=== PATIENT | female | born 1985 | race Two or more races ===

== ENCOUNTER → 2020-05-18 15:44 | Outpatient (BNVA) | payer OTHER, SELFPAY | PROVIDERS: PCP Hospitalist; Referring Provider Hospitalist; Visit Provider Internal Medicine Cardiovascular Disease | DX: R00.2 Palpitations (principal); R55 Syncope and collapse; F90.9 Attention-deficit hyperactivity disorder, unspecified type; Z79.899 Other long term (current) drug therapy | CPT/HCPCS: 93005; 99202 ==

== ENCOUNTER → 2020-06-09 09:50 | Outpatient (BNVA) | payer OTHER, SELFPAY | PROVIDERS: PCP Family Medicine; Referring Provider Family Medicine; Visit Provider Nurse Practitioner | DX: Z76.89 Persons encountering health services in other specified circumstances (principal) ==

== ENCOUNTER 2020-06-10 16:37 | Outpatient (REF) | payer OTHER, SELFPAY ==
[2020-06-10 18:02] LABS: MANUAL DIFF FLAG NO
[2020-06-10 18:09] LABS: Basophils Percent Auto 0.2 % (0-2); Eosinophils Absolute Auto 0.1 X10*3/uL (0.0-0.4); Eosinophils Percent Auto 0.7 % (0-4); Hematocrit 44.9 % (37-47); Hemoglobin 15.2 g/dl (12.0-16.0); Imm Gran Abs Auto 0.03 X10*3/uL (0.00-0.03); Imm Gran Pct Auto 0.4 % (0.0-0.4); Lymphocytes Absolute Auto 1.6 X10*3/uL (1.2-4.9); Lymphocytes Percent Auto 18.8 % (20-40); Mean Corpuscular HGB Conc 33.9 g/dl (31.0-35.0); Mean Corpuscular Hemoglobin 30.3 pg (27.0-33.0); Mean Corpuscular Volume 89.4 fL (80-98); Monocytes Absolute Auto 0.6 X10*3/uL (0.1-1.2); Monocytes Percent Auto 6.6 % (2-11); Neutrophils Absolute Auto 6.2 X10*3/uL (2.0-8.3); Neutrophils Percent Auto 73.3 % (45-73); Platelet Count 290 X10*3/uL (160-400); Red Blood Count 5.02 X10*6/uL (4.20-5.50); Red Cell Distribution Width 12.5 % (11.0-16.0); White Blood Count 8.5 X10*3/uL (4.8-10.8)
[2020-06-10 18:39] LABS: Alanine Aminotransferase 13 U/L (0-31); Albumin Level 4.9 g/dL (3.5-5.0); Alkaline Phosphatase 68 U/L (39-117); Anion Gap 13 (12-20); Aspartate Amino Transferase 19 U/L (5-31); Bilirubin Total 0.3 mg/dL (0.0-1.0); Blood Urea Nitrogen 9 mg/dL (9-16); Calcium 9.4 mg/dL (8.4-10.2); Carbon Dioxide 26 mmol/L (22-29); Chloride 103 mmol/L (96-108); Estimated Glomerular Filt Rate > 60; Glucose Random 82 mg/dL (60-115); Potassium 4.1 mmol/l (3.3-5.1); Sodium 138 mmol/L (135-145); Total Protein 7.7 g/dL (6.5-8.0)
== END 2020-06-10 16:38 | disposition home or self-care (01) ==
LOC: HO.LAB 16:37
PROVIDERS: PCP Family Medicine; Visit Provider Nurse Practitioner
DX: R11.10 Vomiting, unspecified (principal)
CPT/HCPCS: 36415; 80053; 85025

== ENCOUNTER → 2020-06-16 13:07 | Outpatient (REF) | payer OTHER, SELFPAY ==
--- NOTE | 2020-06-16 13:13 | CA_ITS ---
Transthoracic Echocardiogram Patient (Last, First, Middle): Krystle Palacios, Gender: Female Date of : 1985 Age: 34 Procedure Date: 06/16/2020 Procedure Type: Transthoracic Echocardiogram Location: OP Height: 149.86 cm Weight: 45.81 kg BSA: 1.38 m2 Heart Rate: bpm BP: 110 / 70 mmHg Tester Vibrator Equipment: ITZEL Cook MD: Arvind Amanda MD Team Leader Surgery: Wild Ivey MD Symptoms: R00.2 - Palpitations Study Quality: Good ECG Rhythm: Sinus Conclusions: - Normal study Findings Left Ventricle Normal left ventricular size, thickness, and systolic function. The visually estimated ejection fraction is between 60-65%. Diastolic function is normal for age. Right Ventricle Normal right ventricular cavity size and systolic function. Atria Both atria are normal in size. There is no evidence of interatrial shunt. Aortic Valve Normal aortic valve structure and function. There is no aortic valve stenosis. There is no aortic valve regurgitation. Mitral Valve Normal mitral valve structure and function. There is trace mitral valve regurgitation. There is no mitral valve stenosis. Pulmonic Valve The pulmonic valve is likely normal. There is trace pulmonic valve regurgitation. Tricuspid Valve Normal tricuspid valve structure. Tricuspid regurgitation envelope is inadequate for calculation of right ventricular systolic pressure. Great Vessels All visible segments of the aorta are normal in size. The pulmonary artery was not well visualized. Venous The inferior vena cava is normal in size and collapses greater than 50% with inspiration. Pericardium/Pleural There is no evidence of pericardial effusion. Prior Study Comparison No prior study available for comparison. Measurements 2D Linear Measurements IVSd: 0.73 0.6-0.9/0.6-1.0 cm LVIDd: 3.80 3.9-5.3/4.2-5.9 cm LVIDd Index: 2.75 2.4-3.2/2.2-3.1 cm/m2 LVIDs: 2.80 2.0-3.6 cm LVPWd: 0.74 0.7-1.1 cm Ao Root: 2.50 2.1-3.5 cm LA Diam: 2.80 2.7-3.8/3.0-4.0 cm LAIDs Index: 2.03 1.5-2.3 cm/m2 LV Mass: 94.89 67-162/88-224 g LV Mass Index: 68.76 43-95/49-115 g/m2 LVOT Diam: 1.90 3.0+(-)1.3 cm 2D Systolic Function EF 4C: 59.40 >55% EF 2C: 67.40 >55% EF BiP: 62.90 >55% Mitral Valve MV Pk E: 0.66 MV PK A: 0.66 MV Decel Time: 201.00 E/A: 1.00 E'Lateral: 12.70 E'Medial: 9.03 E/E' Med: 7.30 E/E' Lat: 5.20 PHT: 59.00 MVA PHT: 3.73 Decel [place]: 3.26 Aortic Valve AoV Pk Kalpesh: 1.32 AoV Mn Kalpesh: 0.98 AoV VTI: 0.23 AoV Pk Grad: 7.00 Aov Mn Grad: 4.00 JOCELYNE Cont.VTI: 1.94 LVOT LVOT Pk Kalpesh: 0.94 LVOT Mn Kalpesh: 0.57 LVOT VTI: 0.16 LVOT Pk Grad: 4.00 LVOT Mn Grad: 2.00 LVOT Diam: 1.90 LVOT Area: 2.84 Diastolic Function MV Pk E: 0.66 MV Pk A: 0.66 E/A: 1.00 E'Medial: 9.03 E/E' Med: 7.30 E' Laterial: 12.70 E/E' Lat: 5.20 Great Vessels Aorta Ao Root-2D: 2.50 2.0-3.7 cm Ao Asc: 3.00 2.1-3.4 cm Ao Arch: 3.00 Updated in Other Vendor System with Status of Final Wild Ivey MD electronically signed on 06/16/2020 3:29:22 PM with status of Final
--- NOTE | 2020-06-16 13:13 | ECG_ITS ---
Hook-up date: 2020-06-16 14:10:00 Duration: 47:59:00 Test Indications: PALPITATIONS Medications: [id number] QRS complexes 3 Ventricular ectopics which represent <1 % of total QRS comp. * Supraventricular ectopics which represent % of total QRS comp. * Paced QRS complexs which represent % of total QRS comp. VENTRICULAR ECTOPY 3 Isolated 0 Bigeminal Cycles 0 Couplets 0 Runs 0 Beats in Runs * Beats LONGEST at * BPM at :: -- * Beats FASTEST at * BPM at :: -- SUPRAVENTRICULAR ECTOPY * Isolated * Couplets * Runs * Beats in Runs * Beats LONGEST at * BPM at :: -- * Beats FASTEST at * BPM at :: -- HEART RATES 53 MIN at 04:47:10 2020-06-17 96 AVG 131 MAX at 10:25:11 2020-06-17 LONGEST RR 1.2560 secs at 04:47:06 2020-06-17 S-T LEVELS Channel 1 - 128 mm at 14:10:00 2020-06-16 - 128 mm at 14:10:00 2020-06-16 Channel 2 - 128 mm at 14:10:00 2020-06-16 - 128 mm at 14:10:00 2020-06-16 Channel 3 - 128 mm at 03:32:91 -- - 128 mm at 03:32:91 Underlying rhythm is sinus; Average ventricular rate 96/min; range 53-131/min; About 52% of the time, ventricular rate >100/min; Artfact in several strips; Symptoms of chest pain, shortness of breath associated with normal sinus and some sinus tachycardia. Tracing available for 22 Hrs. Referred By: Arvind Amanda Overread By: CARA RUIZ
== END ==
LOC: HO.CARD 13:07
PROVIDERS: Visit Provider Internal Medicine Cardiovascular Disease
DX: R00.2 Palpitations (principal)
CPT/HCPCS: 93225; 93226; 93306

== ENCOUNTER 2020-06-30 10:26 | Day surgery (SDC) | payer OTHER, SELFPAY ==
[2020-06-21 12:04] VITALS: BMI 19.1
--- NOTE | 2020-06-21 13:14 | HO.ANESPROP2 ---
Documented by User: Emmie Fung 06/28/20 11:10 HPI - Anesthesia Eval Consult details Narrative: 34yo F for Upper Endoscopy Case discussed with Dr Amanda, pt optimized, low risk. PMFSH Past Medical History Medical History ADHD Depo-Provera contraceptive status Diarrhea Herniation of intervertebral disc between L4 and L5 Intestinal metaplasia of gastric mucosa Low back pain Palpitations Family History Family History Family/Other Family history not known due to adoption Surgical History Surgical History H/O breast surgery History of esophagogastroduodenoscopy (EGD) History of hand surgery Hx of colonoscopy Social History Social History Alcohol intake: never Smoking Status: Never smoker Use of substances other than those prescribed or required for medical reasons: No Advance Directives: No Advance Directives Information Provided: No Advance Directives on File: No Meds Allergies Allergy/AdvReac Type Severity Reaction Status Date / Time No Known Allergies Allergy Verified 06/21/20 12:12 Home Medications Medication Instructions Recorded Confirmed Type dextroamphetamine-amphetamine 10 10 mg PO TID 05/03/20 06/21/20 History mg tablet dextroamphetamine-amphetamine 20 20 mg PO DAILY@0730 05/03/20 06/21/20 History mg tablet methylprednisolone acetate IM .3 months 05/03/20 05/18/20 History quetiapine 50 mg tablet 50 mg PO BEDTIME 05/03/20 06/21/20 History clonazepam 0.5 mg tablet 0.5 mg PO BID 05/18/20 06/21/20 History tramadol 50 mg PO TID PRN 06/21/20 06/21/20 History Exam Exam Date and Time: June 21, 2020 1314 Height,Weight and Vital Signs: Height 4 ft 11 in Weight 43.091 kg Pertinent Lab Results Pertinent Lab Results: CBC and CMP WNL Narrative Narrative: EKG 05/18/20: NSR@99 Echo 06/16/20: Nml study Assessment and Plan Assessment Anesthesia Assessment: Chart Reviewed Documented by User: Casa Barreto MD 06/30/20 10:43 PMFSH Past Medical History Medical History ADHD Depo-Provera contraceptive status Diarrhea Herniation of intervertebral disc between L4 and L5 Intestinal metaplasia of gastric mucosa Low back pain Palpitations Family History Family History Family/Other Family history not known due to adoption Surgical History Surgical History H/O breast surgery History of esophagogastroduodenoscopy (EGD) History of hand surgery Hx of colonoscopy Social History Social History Alcohol intake: never Smoking Status: Never smoker Use of substances other than those prescribed or required for medical reasons: No Advance Directives: No Advance Directives Information Provided: No Advance Directives on File: No Meds Allergies Allergy/AdvReac Type Severity Reaction Status Date / Time No Known Allergies Allergy Verified 06/21/20 12:12 Home Medications Medication Instructions Recorded Confirmed Type dextroamphetamine-amphetamine 10 10 mg PO TID 05/03/20 06/21/20 History mg tablet dextroamphetamine-amphetamine 20 20 mg PO DAILY@0730 05/03/20 06/21/20 History mg tablet methylprednisolone acetate IM .3 months 05/03/20 05/18/20 History quetiapine 50 mg tablet 50 mg PO BEDTIME 05/03/20 06/21/20 History clonazepam 0.5 mg tablet 0.5 mg PO BID 05/18/20 06/21/20 History tramadol 50 mg PO TID PRN 06/21/20 06/21/20 History Exam Airway Mallampati Class: I TM Dist: >3cm Neck ROM: Full Loose/Missing/Broken Teeth: No Heart: RRR Lungs: NL Other: AO Assessment and Plan Assessment Anesthesia Assessment: Anesthesia Plan Discussed and Chart Reviewed Final Anesthetic Review NPO: Yes ASA Class: II Final Preanesthetic Review: No Changes in Pt Med Stat, Meds/Allgs Chart Reviewed, Consent Obtained/Reviewed and Anes Risks/Benef Reviewed Patient Risk: Low Procedure Risk: Low Anesthetic Plan Anesthetic Plan: MAC: Disposition: Standard PACU
--- NOTE | 2020-06-30 10:29 | PC.NURSE ---
patient stated she is on the depo shot
[2020-06-30 10:31] VITALS: BP 114/82; PULSE 99; RESP 17; TEMP 36.7; O2SAT 99
--- NOTE | 2020-06-30 10:37 | MHC.SHP ---
Pre-Procedural Eval Section B Chief Complaint: Vomiting Details of Present Illness: nausea, vomiting, diarrhea Relevant Social History: None Present Medications: see Short Stay Collaborative assessment Medical History: Significant History (ADHD Diarrhea Herniation of intervertebral disc between L4 and L5 Intestinal metaplasia of gastric mucosa Low back pain Palpitations) History of Previous Operations: Relevant previous surgery/procedure and date(s) (H/O breast surgery History of esophagogastroduodenoscopy (EGD) History of hand surgery Hx of colonoscopy) Allergies: Allergies Allergy/AdvReac Type Severity Reaction Status Date / Time No Known Allergies Allergy Verified 06/21/20 12:12 Review of Systems Sugical H&P ROS: Negative: Constitution, Cardiovascular, Respiratory, Neurological, Psychiatric, Hem-Onc, Allergic/Immunologic, Gastrointestinal, Genitourinary, Musculoskeletal, Integumentary, Endocrine and Eyes/Ears/Nose/Throat Exam Surgical H&P Exam: Normal: HEENT, Normal: Heart, Normal: Lungs, Normal: Extremities, Normal: Skin and Normal: Neurological and Significant Findings: Abdomen (tender RLQ) Plan Diagnosis/Plan: Unchanged I have reviewed the history and physical and performed a pertinent physical examination on my patient. No changes have occurred unless specified.
--- NOTE | 2020-06-30 10:38 | PM.OP ---
Brief Operative Note Date of Service: 06/30/20 Pre-op diagnosis: nausea, vomiting, diarrhea Post-op diagnosis: same Procedure: Procedure Description: EGD FLEXIBLE TRANSORAL UPPER GASTROINTESTINAL ENDOSCOPY UPPER ENDOSCOPY Consent: Indications for the procedure and potential complications of bleeding, perforation, reaction to medications and missed diagnosis were discussed with the patient and informed consent was obtained. Instrument: Olympus GIF H 190 J mid size upper endoscope Monitoring: Vital signs and clinical assessment, continuous EKG monitoring, Pulse oximetry, Carbon Dioxide monitoring and blood pressure monitoring were done throughout the procedure. Procedure: The patient was placed in the left lateral decubitis position and pre-procedure medications were administered and a bite block was placed. The endoscope was inserted into the mouth and advanced under direct vision to the third part of duodenum. A careful inspection was made as the upper endoscope was withdrawn including a retroflexed examination of the proximal stomach; Findings and interventions are described below. Findings: Larynx:normal Esophagus: GE junction at 37 cm, diaphragm hiatus at 37 cm, no varices or esophagitis. random bx taken Stomach:Mild pallor noted with few areas of scarring. Biopsies were obtained from angularis, antrum, lesser curve and greater curve in seperate jars. Grade 2 flap valve on retroflexed examination of the cardia. There was also paucity of gastric movement. Duodenum: Normal bulb and descending duodenum, bx taken Intervention: Biopsies as noted above Impression/Findings: possible gastropathy possible gastroparesis PLAN: await bx results might need further w/u for sx depending on results incl CTe, GES Surgeon: Elmira Rowland MD Anesthesia: MAC Estimated blood loss (mL): 0 Condition: stable Disposition: PACU
[2020-06-30] MEDS: Lactated Ringers 1,000 ML 100 ML IVCONT (10:39)
[2020-06-30 11:22] VITALS: BP 101/68; PULSE 74; RESP 16; TEMP 36.3; O2SAT 100
[2020-06-30 11:37] VITALS: BP 123/88; PULSE 75; RESP 18; O2SAT 100
[2020-06-30 11:45] VITALS: BP 134/96; PULSE 69; RESP 13; TEMP 36.1; O2SAT 100
--- NOTE | 2020-06-30 11:48 | HO.POSTANES ---
Post Anesthesia Evaluation Post Anesthesia Evaluation Vital Signs: Vital Signs Temp Pulse Resp BP Pulse Ox 06/30/20 11:37 75 18 123/88 100 06/30/20 11:22 97.4 F 74 16 101/68 100 06/30/20 10:31 98.1 F 99 17 114/82 99 Anesthesia: Monitored Mental Status: Awake Pain Control: Satisfactory Nausea/Vomiting: None Hydration: Adequate Anesthesia-Related Issues: No Anes. Related Issues
== END 2020-06-30 13:08 | disposition home or self-care (01) ==
PROVIDERS: PCP Family Medicine; Visit Provider Internal Medicine Gastroenterology
PROC: 0DJ08ZZ Inspection of Upper Intestinal Tract, Via Natural or Artificial Opening Endoscopic (ICD-10-PCS; CPT 43235; principal; 2020-06-30 11:20)
DX: R11.2 Nausea with vomiting, unspecified (principal); R19.7 Diarrhea, unspecified; R19.4 Change in bowel habit; K44.9 Diaphragmatic hernia without obstruction or gangrene; R23.1 Pallor; F90.9 Attention-deficit hyperactivity disorder, unspecified type; Z79.899 Other long term (current) drug therapy
CPT/HCPCS: 43239; 88305; 88342

== ENCOUNTER 2020-07-13 12:52 | Day surgery (SDC) | payer OTHER, SELFPAY ==
[2020-07-07 16:10] VITALS: BMI 19.1
--- NOTE | 2020-07-12 09:00 | HO.ANESPROP2 ---
Documented by User: Emmie Fung 07/12/20 09:02 HPI - Anesthesia Eval Consult details Narrative: 34yo F for Colonoscopy Upper Endoscopy with MAC 06/30/20 [facility] Past Medical History Medical History ADHD Depo-Provera contraceptive status Diarrhea Herniation of intervertebral disc between L4 and L5 Intestinal metaplasia of gastric mucosa Low back pain Palpitations Family History Family History Family/Other Family history not known due to adoption Surgical History Surgical History H/O breast surgery History of esophagogastroduodenoscopy (EGD) History of hand surgery Hx of colonoscopy Social History Social History Alcohol intake: never Smoking Status: Never smoker Second Hand Smoke Exposure: No Use of substances other than those prescribed or required for medical reasons: No Advance Directives: No Advance Directives Information Provided: No Advance Directives on File: No Meds Allergies Allergy/AdvReac Type Severity Reaction Status Date / Time No Known Allergies Allergy Verified 06/21/20 12:12 Home Medications Medication Instructions Recorded Confirmed Type dextroamphetamine-amphetamine 10 10 mg PO TID 05/03/20 07/07/20 History mg tablet dextroamphetamine-amphetamine 20 20 mg PO DAILY@0730 05/03/20 07/07/20 History mg tablet methylprednisolone acetate IM .3 months 05/03/20 05/18/20 History quetiapine 50 mg tablet 50 mg PO BEDTIME 05/03/20 07/07/20 History clonazepam 0.5 mg tablet 0.5 mg PO BID 05/18/20 07/07/20 History tramadol 50 mg PO TID PRN 06/21/20 07/07/20 History Exam Exam Date and Time: July 12, 2020 0900 Height,Weight and Vital Signs: Height 4 ft 11 in Weight 43.09 kg Pertinent Lab Results Pertinent Lab Results: Laboratory Tests 06/10/20 06/10/20 16:45 16:45 WBC 8.5 Hgb 15.2 Hct 44.9 Plt Count 290 Sodium 138 Potassium 4.1 Chloride 103 Carbon Dioxide 26 BUN 9 Creatinine 0.73 Narrative Narrative: EKG 11/18/20: NSR@99 Echo 06/16/20: Nml study Assessment and Plan Assessment Anesthesia Assessment: Chart Reviewed Documented by User: Casa Barreto MD 07/13/20 13:43 [facility] Past Medical History Medical History ADHD Depo-Provera contraceptive status Diarrhea Herniation of intervertebral disc between L4 and L5 Intestinal metaplasia of gastric mucosa Low back pain Palpitations Family History Family History Family/Other Family history not known due to adoption Surgical History Surgical History H/O breast surgery History of esophagogastroduodenoscopy (EGD) History of hand surgery Hx of colonoscopy Social History Social History Alcohol intake: never Smoking Status: Never smoker Second Hand Smoke Exposure: No Use of substances other than those prescribed or required for medical reasons: No Advance Directives: No Advance Directives Information Provided: No Advance Directives on File: No Meds Allergies Allergy/AdvReac Type Severity Reaction Status Date / Time No Known Allergies Allergy Verified 06/21/20 12:12 Home Medications Medication Instructions Recorded Confirmed Type dextroamphetamine-amphetamine 10 10 mg PO TID 05/03/20 07/07/20 History mg tablet dextroamphetamine-amphetamine 20 20 mg PO DAILY@0730 05/03/20 07/07/20 History mg tablet methylprednisolone acetate IM .3 months 05/03/20 05/18/20 History quetiapine 50 mg tablet 50 mg PO BEDTIME 05/03/20 07/07/20 History clonazepam 0.5 mg tablet 0.5 mg PO BID 05/18/20 07/07/20 History tramadol 50 mg PO TID PRN 06/21/20 07/07/20 History Exam Airway Mallampati Class: I TM Dist: >3cm Neck ROM: Full Loose/Missing/Broken Teeth: No Heart: RRR Lungs: NL Other: AO Assessment and Plan Assessment Anesthesia Assessment: Anesthesia Plan Discussed and Chart Reviewed Final Anesthetic Review NPO: Yes ASA Class: I Final Preanesthetic Review: No Changes in Pt Med Stat, Meds/Allgs Chart Reviewed, Consent Obtained/Reviewed and Anes Risks/Benef Reviewed Patient Risk: Low Procedure Risk: Low Anesthetic Plan Anesthetic Plan: MAC: Disposition: Standard PACU
[2020-07-13 13:10] VITALS: BP 118/81; PULSE 65; RESP 16; TEMP 36.9; O2SAT 98
[2020-07-13 13:16] LABS: UPreg QC Valid YES
[2020-07-13 13:17] LABS: Urine Pregnancy NEGATIVE (NEGATIVE)
[2020-07-13] MEDS: Lactated Ringers 1,000 ML 100 ML IVCONT (13:23)
--- NOTE | 2020-07-13 14:03 | MHC.SHP ---
Pre-Procedural Eval Section B Chief Complaint: Diarrhea Relevant Family History (Specify if Yes): No Relevant Social History: None Present Medications: see Short Stay Collaborative assessment Medical History: Significant History (ADHD Depo-Provera contraceptive status Diarrhea Herniation of intervertebral disc between L4 and L5 Intestinal metaplasia of gastric mucosa Low back pain Palpitations) History of Previous Operations: Relevant previous surgery/procedure and date(s) (H/O breast surgery History of esophagogastroduodenoscopy (EGD) History of hand surgery Hx of colonoscopy) Allergies: Allergies Allergy/AdvReac Type Severity Reaction Status Date / Time No Known Allergies Allergy Verified 06/21/20 12:12 Review of Systems Sugical H&P ROS: Negative: Constitution, Cardiovascular, Respiratory, Neurological, Psychiatric, Hem-Onc, Allergic/Immunologic, Gastrointestinal, Genitourinary, Musculoskeletal, Integumentary, Endocrine and Eyes/Ears/Nose/Throat Exam Surgical H&P Exam: Normal: HEENT, Normal: Heart, Normal: Lungs, Normal: Extremities, Normal: Abdomen, Normal: Skin and Normal: Neurological Plan Diagnosis/Plan: Unchanged I have reviewed the history and physical and performed a pertinent physical examination on my patient. No changes have occurred unless specified.
--- NOTE | 2020-07-13 14:29 | P.OP_ITS ---
Operative Note Operative Note Date of Service: 07/13/20 Narrative: Operative Information Procedure Description: Colonoscopy COLONOSCOPY Instrument: Olympus variable stiffness pediatric scope 190L Colonoscopy Monitoring: Vital signs and clinical assessment, continuous EKG monitoring, Pulse oximetry, Carbon Dioxide monitoring and blood pressure monitoring were done throughout the procedure. Colon withdrawal time was 16 minutes. Procedure: The patient was placed in the left lateral decubitis position and pre-procedure medications were administered. After a digital rectal examination of the ano-rectum, the video colonoscope was inserted into the rectum and advanced through the colon to the cecum/TI. The colonoscope was slowly withdrawn in a retrograde panoramic fashion and the colon mucosa was carefully examined including a retroflexed view of the rectum. Findings and interventions are described below. Procedure Difficulty:easy Findings: random colon bx taken Terminal Ileum-one erosion seen, bx taken Cecum:normal Ascending Colon: few large diverticula seen Transverse Colon -normal Descending Colon:normal Sigmoid Colon: normal Rectum: Retroflexion with small internal hemorrhoids, grade I Anorectum - normal Colon preparation: [place] Bowel Preparation Scale Right colon; 1 Transverse colon: 2 Left colon; 2 (0 = Unprepared colon segment with mucosa not seen due to solid stool that cannot be cleared. 1 = Portion of mucosa of the colon segment seen, but other areas of the colon segment not well seen due to staining, residual stool and/or opaque liquid. 2 = Minor amount of residual staining, small fragments of stool and/or opaque liquid, but mucosa of colon segment seen well. 3 = Entire mucosa of colon segment seen well with no residual staining, small fragments of stool or opaque liquid) Impression and Post Procedure Diagnosis: erosion in TI internal hemorrhoids Plan: High fiber diet leaflet Avoid straining at stool, epsom salts and sitz bath, anusol supps or cream prn Repeat Colonoscopy aged 45 or earlier if clinically indicated may consider capsule endoscopy or CTe depending on bx results, confirm nsaid hx Above findings were reviewed with the patient and relevant handouts were provided if indicated.
--- NOTE | 2020-07-13 14:29 | PM.OP ---
Brief Operative Note Date of Service: 07/13/20 Pre-op diagnosis: diarrhea Post-op diagnosis: same Procedure: see op note Surgeon: Elmira Rowland MD Anesthesia: MAC Estimated blood loss (mL): 0 Condition: stable Disposition: PACU
[2020-07-13 15:00] VITALS: BP 145/102; PULSE 86; RESP 16; TEMP 36.1; O2SAT 98
[2020-07-13 15:15] VITALS: BP 112/82; PULSE 87; RESP 16; O2SAT 98
--- NOTE | 2020-07-13 15:16 | HO.POSTANES ---
Post Anesthesia Evaluation Post Anesthesia Evaluation Vital Signs: Vital Signs Temp Pulse Resp BP Pulse Ox 07/13/20 13:10 98.5 F 65 16 118/81 98 Anesthesia: Monitored Mental Status: Awake Pain Control: Satisfactory Nausea/Vomiting: None Hydration: Adequate Anesthesia-Related Issues: No Anes. Related Issues
== END 2020-07-13 16:00 | disposition home or self-care (01) ==
PROVIDERS: Nurse Practitioner; PCP Family Medicine; Visit Provider Internal Medicine Gastroenterology
PROC: 0DJD8ZZ Inspection of Lower Intestinal Tract, Via Natural or Artificial Opening Endoscopic (ICD-10-PCS; CPT 45378; principal; 2020-07-13 14:10)
DX: R19.7 Diarrhea, unspecified (principal); K57.30 Diverticulosis of large intestine without perforation or abscess without bleeding; K64.0 First degree hemorrhoids; F90.9 Attention-deficit hyperactivity disorder, unspecified type; R00.2 Palpitations; Z79.899 Other long term (current) drug therapy
CPT/HCPCS: 45380; 81025; 88305

== ENCOUNTER → 2020-07-18 09:24 | Outpatient (BNVA) | payer OTHER, SELFPAY | PROVIDERS: PCP Family Medicine; Visit Provider Nurse Practitioner ==

== ENCOUNTER 2020-08-16 14:57 | Outpatient (RCR) | payer OTHER, SELFPAY ==
--- NOTE | 2020-08-16 16:19 | MHC.PT.EP ---
[facility] [place] Office [place] Office [place] Office [address] Mela Almazan [address] [phone] F: [phone] F: [phone] F: [phone] F: [phone] Physical Therapy Plan of Care Date of Evaluation: 08/16/20 Date of Surgery: Diagnosis: Pt REF TO PT FOR ANKYLOSING SPONYLITIS OF THORACOLUMBAR REGION Assessment: 34 YO FEMALE REF TO PT FOR HER LBP W RIGHT SCIATICA- SHE NOTES A 11 YR H/O LBP AND SHE HAS HAD PRIOR CHIROPRACTIC AND PT TREATMENT. 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 SHE IS CURRENTLY IN A Rt WRIST/THUMB SPLINT. Pt HAS DECR POSTURAL AWARENESS, (+) SOFT TISSUE IRRIT, DECR HS FLEXIB AND TRUNK AROM, (+) PELVIC ASYMM, AND PAIN IN HER LS REGION W INTERM LOUANN LEs RADIATING SXS- SHE HAD HYPOREFLEXIVE PATELLAR REFLEXES LOUANN. FUNCTIONALLY, Pt NOTES LIMITATIONS W BENDING, SQUATTING, LIFTING, STAIR MGMT, AND PROLONGED STANDING. SHE WOULD BENEFIT FROM PT TO ADDRESS PAIN AND DEV A HEP/ SELF MGMT TECHN. Frequency and Duration: The patient will be seen 1xWK AT Pt'S REQUEST DUE TO WORK SCHED Short Term Goals: DECR Pt'S LBP TO 3-4/10 AND REDUCE LEs SXS BY 75% IN 3 WKS Pt DMEON PROPER SELF CORRECT OF POSTURE AND PERF 3:3 SIMUL ADLs W PROPER BODY MECH/ WORK SIMUL IN 3 WKS [place] Goals: Pt RESUME REG ADLs EIDENT IN IMPROVED OSWESTRY SCORE BY 10 PINTS (30/50 AT EVAL) IN 5 WKS Pt DMEON WFL HS FLEXIB, WFL TRUNK AROM, AND WFL STRENGTH EVIDENT W SYMM PELVIS IN 5 WKS Treatment Plan: Modalities to reduce pain, spasms and effusion. Manual therapy to restore motion and function. Therapeutic exercise to improve strength and flexibility. Neuromuscular re-education for posture and balance. Therapeutic activities to return to functional activities of daily living. Electronically signed by: Dianne Hsu, PT Please sign and return to therapist. Thank you for your referral.
--- NOTE | 2020-09-16 08:19 | MHC.PT.DC ---
[facility] [place] Office [place] Office [place] Office [address] Kylie Almazan [address] [phone] F: [phone] F: [phone] F: [phone] F: [phone] Physical Therapy Discharge Report Diagnosis: Pt REF TO PT FOR ANKYLOSING SPONYLITIS OF THORACOLUMBAR REGION Date of Surgery: Date of Evaluation: 08/16/20 Date of Discharge: 09/16/20 Treatments to Date: 1 Cancellations to Date: 0 No Shows to Date: 0 Discharge Status: Patient Elected to Stop Visit Non-compliance Discharge Summary: 34 YO FEMALE REF TO PT FOR HER LBP W RIGHT SCIATICA- SHE NOTES A 11 YR H/O LBP AND SHE HAS HAD PRIOR CHIROPRACTIC AND PT TREATMENT. 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 SHE IS CURRENTLY IN A Rt WRIST/THUMB SPLINT. Pt HAS DECR POSTURAL AWARENESS, (+) SOFT TISSUE IRRIT, DECR HS FLEXIB AND TRUNK AROM, (+) PELVIC ASYMM, AND PAIN IN HER LS REGION W INTERM LOUANN LEs RADIATING SXS- SHE HAD HYPOREFLEXIVE PATELLAR REFLEXES LOUANN. FUNCTIONALLY, Pt NOTES LIMITATIONS W BENDING, SQUATTING, LIFTING, STAIR MGMT, AND PROLONGED STANDING. SHE WOULD BENEFIT FROM PT TO ADDRESS PAIN AND DEV A HEP/ SELF MGMT TECHN. Electronically signed by: Dianne Hsu, PT Please sign and return to therapist. Thank you for your referral.
== END 2020-09-16 08:20 | disposition other institution (70) ==
LOC: HO.PTCHIC 14:57
PROVIDERS: PCP Family Medicine; Visit Provider Family Medicine
DX: M54.41 Lumbago with sciatica, right side (principal); M54.42 Lumbago with sciatica, left side
CPT/HCPCS: 97110; 97140; 97162

== ENCOUNTER 2020-09-30 16:33 | Outpatient (REF) | payer OTHER, SELFPAY ==
--- NOTE | ~2020-09-30 | XR_ITS ---
EXAMINATION: CR LUMBOSACRAL SPINE CLINICAL INFORMATION: Sciatica, left side. COMPARISON: None TECHNIQUE: Three views of the lumbosacral spine. FINDINGS: The vertebral bodies and posterior elements are normal. The disc spaces are preserved and the vertebral alignment is normal. The paraspinal soft tissues are normal. XR/XR lumbar spine 2-3V IMPRESSION: Unremarkable examination.
--- NOTE | ~2020-09-30 | XR_ITS ---
EXAMINATION: CR RIGHT WRIST CLINICAL INFORMATION: Pain in right wrist. COMPARISON: None TECHNIQUE: 4 views of the right wrist. FINDINGS: Mild soft tissue swelling is seen about the radial and dorsal surface of the wrist. No underlying fracture or dislocation is seen. No significant degenerative change, radiopaque foreign body, or joint/soft tissue calcification seen. XR/XR wrist RT w scaphoid IMPRESSION: 1. Mild dorsal soft tissue swelling over the dorsum of the wrist and radial aspect of the wrist. 2. No acute fracture or dislocation.
== END 2020-09-30 16:34 | disposition home or self-care (01) ==
LOC: HO.XRAY 16:33
PROVIDERS: PCP Family Medicine; Visit Provider Family Medicine
DX: M25.531 Pain in right wrist (principal); M54.32 Sciatica, left side; M54.5 Low back pain
CPT/HCPCS: 72100; 73110

== ENCOUNTER → 2020-10-12 11:01 | Outpatient (BNVA) | payer OTHER, SELFPAY | PROVIDERS: Visit Provider Orthopaedic Surgery | DX: M65.4 Radial styloid tenosynovitis [de Quervain] (principal) | CPT/HCPCS: 20550; 99202; J1100 ==

== ENCOUNTER → 2020-11-07 11:31 | Outpatient (BNVA) | payer OTHER, SELFPAY | PROVIDERS: PCP Family Medicine; Visit Provider Nurse Practitioner Family | DX: M65.4 Radial styloid tenosynovitis [de Quervain] (principal) | CPT/HCPCS: 99202 ==

== ENCOUNTER 2020-11-25 10:10 | Outpatient (REF) | payer OTHER, SELFPAY ==
--- NOTE | 2020-11-25 17:32 | MHC.AU.AEV ---
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 Patient showed a video of the drilling/construction in the store. She states that her ears feel blocked and she has to ask everyone to speak louder. She states that she is often asking for repetition. She notes tinnitus bilaterally that also began following the noise exposure. Patient asked me to raise my voice and repeat frequently throughout today's visit. She notes that she feels like she is under water. Does patient feel they have a hearing loss?: Yes If Yes, Which Ear?: Both Ears When Was Hearing Difficulty First Noticed?: September 13, 2020 Has hearing been tested previously?: No Hearing Handicap Inventory HHIE SCORE: 34 Based on HHIE score, patient has: Severe perceived hearing handicap Medical History: Medical History: Right wrist tendinitis, surgery on the right wrist Otoscopy: Right Ear: Partially occluded with cerumen Left Ear: Attempted removal. Some removed, but not all Tympanometry: Tympanometry performed due to: To assess integrity of the middle ear system Right Ear: Normal Middle Ear System (Type A) Left Ear: Normal Middle Ear System (Type A) Otoacoustic Emissions:Did not test due to time constraints. Hearing Evaluation: Transducer(s) Used: Insert Earphones,Bone Conduction Method: Conventional Audiometry Stimuli Used: Pure Tones Right Ear: Description of Hearing: Moderately severe to severe mixed hearing loss from 250-8000 Hz. Left Ear: Description of Hearing: Severe mixed hearing loss from 250-8000 Hz. Note that patient kept saying she couldn't hear it and would ask if there were sound present. Kept rubbing ears and trying to hold headphones in. Would frequently ask me to repeat. Fair reliability. Speech Recognition Threshold (SRT): Method Used: Monitored Live Voice Stimuli Used: Spondee Words Right Ear: 85 dBHL Left Ear: 85 dBHL Recommendations: Due to time constraints, full testing could not be completed. Patient arrived late. Recommend follow-up with ENT due to concerns for sudden sensorineural hearing loss and to complete cerumen removal. Counseled patient that if hearing loss persists, which if today's test is valid is likely, hearing aids would be the recommendation. Diagnosis: Primary Diagnosis: H90.3 Bilateral Sensorineural Hearing Loss Secondary Diagnosis: H61.23 Impacted Cerumen, Bilateral Services Performed: Pure Tone- Air & Bone (CPT 02750) Speech Audiometry Threshold (SRT/SAT) (CPT 30697) Tympanometry (CPT 91128) Signature: Provider: Sonido Bailey, CCC-A
== END 2020-11-25 10:11 | disposition home or self-care (01) ==
LOC: HO.SH 10:10
PROVIDERS: Visit Provider Family Medicine
DX: H91.90 Unspecified hearing loss, unspecified ear (principal)
CPT/HCPCS: 92553; 92555; 92567

== ENCOUNTER → 2020-11-29 10:19 | Outpatient (BNVA) | payer OTHER, SELFPAY | PROVIDERS: Visit Provider Orthopaedic Surgery ==

== ENCOUNTER 2020-11-29 11:30 | Outpatient (RCR) | payer OTHER, SELFPAY ==
--- NOTE | 2020-11-29 12:24 | MHC.OT.DC ---
[address] [phone] F: [phone] Occupational Therapy Discharge Note Provider: Maulik Stafford Diagnosis: R Dequervains tenosynovitis Date of Surgery: Date of Evaluation: 11/21/20 Date of Discharge: Treatments to Date: 1 Cancellations to Date: 1 No Shows to Date: Discharge Status: Patient Elected to Stop Discharge Summary: See eval for details. Pt cancelled OT due to plan to schedule surgery after meeting with Dr. Gonzales. Electronically Signed By: Ania Díaz OT CHT CLT Reviewed/agree with student documentation: N/A Therapist: Please Sign and return to therapist, thank you for your referral.
== END 2020-12-26 08:26 | disposition other institution (70) ==
LOC: HO.OT 11:30
PROVIDERS: PCP Family Medicine; Visit Provider Anesthesiology
DX: M65.4 Radial styloid tenosynovitis [de Quervain] (principal)
CPT/HCPCS: 97033; 97165

== ENCOUNTER 2021-06-13 17:33 | Outpatient (REF) | payer OTHER, SELFPAY ==
--- NOTE | ~2021-06-13 | XR_ITS ---
EXAMINATION: XR HAND/WRIST RIGHT CLINICAL INFORMATION: Pain in right wrist. COMPARISON: XR right wrist 09/30/2020. TECHNIQUE: PA, oblique, and lateral views of the right hand/wrist are obtained. FINDINGS: There is no acute fracture or malalignment. There are no degenerative arthritic changes. XR/XR hand wrist RT IMPRESSION: Unremarkable radiographs.
== END 2021-06-13 17:34 | disposition home or self-care (01) ==
LOC: HO.XRAY 17:33
PROVIDERS: PCP Family Medicine; Visit Provider Family Medicine
DX: M25.531 Pain in right wrist (principal); M77.8 Other enthesopathies, not elsewhere classified; M79.641 Pain in right hand
CPT/HCPCS: 73110; 73130